=== PATIENT | female | born 1970 | race Caucasian/White ===

== ENCOUNTER 2024-12-12 13:02 | Emergency (ER) | payer MEDICAID, SELFPAY ==
[2024-12-12 13:03] VITALS: BMI 24.7
--- NOTE | 2024-12-12 13:12 | XR_ITS ---
Examination: CT left knee, without contrast. 2-D sagittal reconstructions. 2-D coronal reconstructions. 3-D reconstructions. Date and time of exam:December 12, 2024 1421 hours INDICATIONS: Injury to the knee today, knee pain CTDI: vol (mGy):6.86 DLP: (mGycm):193 Technique: Multiple 1.25 mm axial sections of the left knee have been obtained. 2-D sagittal and coronal reconstructions have been obtained. 3-D reconstructions have been obtained. Low dose protocols were performed. One or more of the following dose reduction techniques were used; automated exposure control, adjustment of the mA and/or KV according to patient size, use of iterative reconstruction technique. Findings: Distal femur femoral condyles intact Old bone densities at the inferior margin of the patella No acute patellar fracture No patellar dislocation Proximal tibia and fibular head and neck intact Large knee effusion, seen with internal derangement of the knee IMPRESSION: No acute fracture. Large knee effusion, seen with internal derangement of the knee
--- NOTE | 2024-12-12 13:12 | XR_ITS ---
Examination: Knee, left , 3 views Technique: Knee AP, lateral, oblique 3 views Date and time of exam: December 12, 2024 1320 hrs. Indications: Patient fell yesterday with injury to the knee, knee pain Findings: The lateral film is overpenetrated Old appearing bone densities at the inferior margin of the patella but clinical correlation advised No dislocation Severe narrowing medial joint space Impression: Old appearing bone density at the inferior margin of the patella, but clinical correlation advised
--- NOTE | 2024-12-12 13:13 | PD.EDRME ---
Rapid Medical Screening Exam RME Arrival date/time: 12/12/24 13:02 54-year-old female presents emergency part today with complaints of severe left knee pain after a fall patient reports prior surgical history 3 years ago Chief Complaint: Extremity Injury, Lower Time Seen by Provider: 12/12/24 13:06
[2024-12-12 13:14] VITALS: BP 128/88; PULSE 86; RESP 18; TEMP 37.2; O2SAT 97
[2024-12-12] MEDS: HYDROcodone/APAP 10/325 TAB PO (13:28)
--- NOTE | 2024-12-12 16:28 | PD.EDLOWEX ---
Lower Extremity Injury RME/HPI General Chief Complaint: Extremity Injury, Lower Stated Complaint: L KNEE INJURY Time Seen by Provider: 12/12/24 13:06 Arrival date/time: 12/12/24 13:02 54-year-old female presents emergency part today with complaints of severe left knee pain after a fall patient reports prior surgical history 3 years ago Limitations: no limitations RME / HPI RME / HPI Narrative: 12/12/24 13:02 54-year-old female presents emergency part today with complaints of severe left knee pain after a fall patient reports prior surgical history 3 years ago Related Data Previous Rx's ?Medication ?Instructions ?Recorded hydrocodone 5 mg-acetaminophen 325 1 tab PO BID PRN pain #14 tabs 12/12/24 mg tablet ibuprofen 800 mg tablet 800 mg PO TID PRN pain #30 tabs 12/12/24 Allergies Allergy/AdvReac Type Severity Reaction Status Date / Time No Known Allergies Allergy Verified 12/12/24 13:03 Review of Systems Review of Systems Systems Reviewed: All systems reviewed, normal except as documented Constitutional Constitutional: Reports system reviewed and no additional complaints, except as documented, Denies fever(s) and Denies headache(s) Eyes Eyes: Reports system reviewed and no additional complaints, except as documented and Denies blurry vision ENT Ears, Nose, Mouth, and Throat: Reports system reviewed and no additional complaints, except as documented, Denies headache(s), Denies nasal congestion and Denies nasal discharge Cardiovascular Cardiovascular: Reports system reviewed and no additional complaints, except as documented, Denies chest pain and Denies dyspnea Respiratory Respiratory: Reports system reviewed and no additional complaints, except as documented, Denies chest congestion, Denies cough and Denies dyspnea Gastrointestinal Gastrointestinal: Reports system reviewed and no additional complaints, except as documented and Denies abdominal pain Musculoskeletal Musculoskeletal: Reports system reviewed and no additional complaints, except as documented, Reports arthralgias, Denies deformity, Denies numbness and Denies tingling Integumentary/Breasts Skin/Breast: Reports system reviewed and no additional complaints, except as documented and Denies rash Neurologic Neurologic: Reports system reviewed and no additional complaints, except as documented, Reports as per HPI, Denies headache(s), Denies numbness and Denies tingling Past Medical History Past Medical History CARDIAC: Negative Congestive Heart Failure RESPIRATORY: Negative Chronic Obstructive Pulmonary Disease (COPD) GENITOURINARY: Negative Renal Disease ENDOCRINE: Negative Diabetes Mellitus Type 1 or Diabetes Mellitus Type 2 Social History SMOKING STATUS: Current every day smoker ED Exam General Limitations: Present no limitations General appearance: Present alert and in no apparent distress Head Head exam: Present atraumatic Eye Eye exam: Present normal appearance, PERRL and EOMI ENT ENT exam: Present normal exam, normal oropharynx and mucous membranes moist Neck Neck exam: Present normal inspection, full ROM and trachea midline Chest Chest inspection: Present normal inspection and symmetric chest wall rise Respiratory Respiratory exam: Present normal lung sounds bilaterally Cardiovascular Cardiovascular exam: Present regular rate, normal rhythm and normal heart sounds Abdominal Exam Abdominal exam: Present soft and normal bowel sounds Extremities Exam Extremities exam: Present tenderness, normal capillary refill and joint swelling (Left knee swelling); Absent pedal edema or calf tenderness Back Exam Back exam: Present normal inspection and full ROM Neurological Exam Neurological exam: Present alert, oriented X3 and CN II-XII intact Psychiatric Psychiatric exam: Present normal affect and normal mood Skin Skin exam: Present warm, dry, intact and normal color Course Quality Measures none Orders Category Date Time Status Crutches .NOW Care 12/12/24 16:30 Completed oc wrap [Splint / Immobilizer] STAT Care 12/12/24 16:[address] knee LT wo con Stat Exams 12/12/24 13:12 Completed XR knee LT 3V Stat Exams 12/12/24 13:12 Completed HYDROcodone/APAP 10/325 [[place] 10/325] Med 12/12/24 13:12 Discontinued 1 tab PO X1 ONE Vital Signs Vital signs: Vital Signs Temperature 98.9 F 12/12/24 13:14 Pulse Rate 86 12/12/24 13:14 Respiratory Rate 18 12/12/24 13:14 Blood Pressure 128/88 H 12/12/24 13:14 Pulse Oximetry (%) 97 12/12/24 13:14 Oxygen Delivery Method Room Air 12/12/24 13:14 O2 saturation 97% room air within normal limits Extremity Injury, Lower MDM Narrative MDM Narrative:: 54-year-old female presents emergency part today with complaints of severe left knee pain after a fall patient reports prior surgical history 3 years ago On exam patient has swelling to the left knee reports quite a bit of pain Imaging obtained occluding x-ray and CT scan no acute fracture dislocation noted patient does have large knee effusion Patient was given [place] here which improved pain significantly Patient placed in Oc wrap and given crutches Patient discharged home in no distress to follow-up with primary care doctor in the next 24 to 48 hours and for any worsening symptoms to return to the ER immediately Patient data External records reviewed:: [facility] previous records Clinical information provided by:: patient Social determinants that could affect healthcare access:: none Patient has the following chronic illnesses:: None How is presenting disease/condition affected by chronic disease/condition?: no chronic disease Evaluation data The following diagnostics were reviewed and interpreted by me:: radiology exam(s) Lab and/or radiology exams considered but not ordered:: Radiology obtain Interpretation Summary: Reviewed by me Medications / Prescriptions Medications or Prescriptions considered but not ordered:: Given Medication administrations:: Medication Administration History Discontinued Medications Hydrocodone Bitart/Acetaminophen (Hydrocodone/Apap 10/325 Tab) 1 tab PO X1 ONE Stop: 12/12/24 13:13 Last Admin: 12/12/24 13:28 Dose: 1 tab Documented By: KF Given Consultations Consultation(s) initiated? (list below): No Diagnosis Extremity Injury, Lower Differential Diagnosis: acute internal derangement of knee and other Most likely diagnosis given after review of the tests above:: Knee sprain Admission Indicated Admission indicated?: not indicated Admission Request Was there a request for admission?: No Disposition Plan Disposition Plan: Discharge Discharge Attestation Discharge Attestation: The patient and all family members were given an opportunity to ask questions and understood the discharge instructions. Discharge instructions specifically effects, indications for sooner follow up or return to the emergency department, and the expected course of current diagnosis. Patient condition: Stable Discharge Plan Plan Patient Disposition: HOME (Self Care) Discharge Disposition comment: Stable Prescriptions/Referrals Prescriptions/Med Rec: New ibuprofen 800 mg tablet 800 mg PO TID PRN (Reason: pain) Qty: 30 0RF hydrocodone-acetaminophen 5-325 mg tablet 1 tab PO BID MDD 10 PRN (Reason: pain) Qty: 14 0RF Referrals: Magdi Marquez MD [Primary Care Provider] - 12/13/24 Problem List Clinical Impression: Acute internal derangement of knee, Contusion of knee, left Patient/Caregiver Discharge Instructions Education Materials: Bone Contusion Additional Instructions: Please follow up with your primary care doctor in the next 24-48hrs for any worsening symptoms return here immediately Print Language: Upper Sorbian Stand Alone Forms: [facility] [employer] Info., Patient Portal Info Letter PA/HEALTH SPA MANAGER Supervising Physician PA/HEALTH SPA MANAGER Supervising Physician: Dr. voss
== END 2024-12-12 16:36 | disposition home or self-care (01) ==
PROVIDERS: Emergency Provider Family Medicine; PCP Family Medicine
DX: S80.02XA Contusion of left knee, initial encounter (principal); M23.92 Unspecified internal derangement of left knee; X58.XXXA Exposure to other specified factors, initial encounter
CPT/HCPCS: 73562; 73700; 99284; A9270